=== PATIENT | male | born 1980 | race Caucasian/White ===

== ENCOUNTER 2024-03-13 13:35 | Emergency (ER) | payer BC, SELFPAY ==
[2024-03-13 14:30] VITALS: BP 127/80; PULSE 74; RESP 16; TEMP 37; O2SAT 97; BMI 35.9
--- NOTE | 2024-03-13 14:32 | ED_ITS ---
HPI - General Adult General Chief complaint: Extremity Injury, Lower Stated complaint: r leg inj Time Seen by Provider: 03/13/24 14:38 History of Present Illness ED Provider: Dominic Schmitz PA-C HPI narrative: 43 yold male healthy presents to the ED for right groin/thigh pain since yesterday. Patient states yesterday while playing with the son he was trying to kick the ball and while kicking he heard a pop in his right inner thigh groin area. Patient denies any blunt trauma to right thigh right lower extremity. Patient denies falling. Patient states pain on movement of right thigh ever since. Patient denies hitting head or any other complaints. Related Data Previous Rx's ?Medication ?Instructions ?Recorded cyclobenzaprine 10 mg tablet 10 mg PO BEDTIME PRN muscle spasm 03/13/24 #7 tabs naproxen 500 mg tablet 500 mg PO BID PRN pain 7 days #14 03/13/24 tabs prednisone 20 mg tablet 40 mg (2 x 20 mg) PO DAILY 5 days 03/13/24 #10 tabs Allergies Allergy/AdvReac Type Severity Reaction Status Date / Time No Known Allergies Allergy Verified 03/13/24 14:32 Review of Systems 2 Review of Systems: Right thigh pain Yes all other systems are reviewed and are negative [facility] Social History Social History Advance Directives: No Advance Directives Information Provided: Yes Physical Exam ED Vital Signs: Vital Signs - 24 hr 03/13/24 14:30 03/13/24 15:04 Temperature 98.6 F 98.6 F Pulse Rate 74 74 Respiratory Rate 16 16 Blood Pressure 127/80 127/80 Pulse Oximetry 97 97 Oxygen Delivery Method Room Air Room Air BMI result Body Mass Index 35.9 Const General: cooperative, healthy appearing, comfortable, no acute distress, well developed, alert, awake and Physically active Orientation/consciousness: patient oriented x3 HENMT Head: Yes normal to inspection, Yes No palpable skull fracture present, Yes normocephalic and Yes atraumatic Eyes General: appearance normal, both eyes and all related structures Neck Neck: Yes normal visual inspection, Yes full ROM, Yes no lymphadenopathy, Yes no meningeal signs, Yes trachea midline, Yes supple, No anterior neck swelling and No tender Chest Chest palpation & inspection: normal inspection of the chest and normal palpation of entire chest wall Resp Effort & Inspection: normal respiratory effort and able to speak in complete sentences Auscultation: clear to auscultation bilaterally Cardio Jugular venous distension: no JVD Heart sounds: S1 normal heart sound present and S2 normal heart sound present GI Inspection: Yes normal to inspection Palpation (GI): Soft to palpation, not firm, nontender, no guarding and not rigid General: Yes no CVA tenderness Back/Spine/Pelvis Back: no CVA tenderness and No back tenderness Skin General skin exam: no rashes or lesions noted, elasticity normal and turgor normal Neuro General: patient oriented x3, gait normal, tone normal, moves all extremities, Normal light touch and pain sensation, no meningeal signs, no focal motor deficits, CN's II-XI intact bilaterally and normal sensation to monofilament Extrem General: Yes normal to inspection, Yes full ROM, Yes capillary refill normal and Yes normal exam except as noted Knee images: 2 1. Positive for tenderness on palpation with some small ecchymosis. Negative for deformity, erythema or crepitus. Negative for palpable hard mass. Skin is soft. Rest of extremity normal. Motor/neuro/vascular exam intact. Psych Appearance: grossly normal, well kempt and not disheveled Course Course Course Narrative: RME; Done Medical Decision Making Medical Decision Making MDM Narrative: 43 yold male presents to the ED for right/thigh groin injury pain. Patient states yesterday he was playing soccer with his kids and as he was kicking the ball he heard a pop in his right groin and has had pain ever since. Patient denies any blunt trauma to right thigh. Patient states pain on range of motion of groin. patient states able to walk and bear weight. 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 Patient states he will follow-up with [facility] or his primary care provider. Patient refuses x-ray. Right inner thigh groin area tender to palpation with slight ecchymosis. Negative for hardening mass to indicate hematoma. Negative for calf/leg swelling or thigh swelling. Negative for skin stiffness. Rest of extremity motor neurovascular exam intact. History physical exam indicate more possible muscle tear/sprain. Unlikely fracture. Patient explained worrisome signs and risks including due to leaving without evaluation. patient states he will go with his primary care doctor or [facility]. Patient educated on signs of hematoma, compartment syndrome, hematoma extravasation, DVT, cellulitits, abscsess, arterial occlusion, and other life-threatening etiologies. Patient informed he will need an MRI to rule out muscle thigh tear. Patient does not want x-ray to evaluate for femur fracture. Presently not suspecting osteomyelitis, DVT, compartment syndrome, abscess, arterial occlusion, hematoma, extravasation hematoma, cellulitits or necrotizing fasciitis. Differential Diagnosis Differential Diagnoses: The differential diagnosis associated with the presentation includes (Muscle tear, femur fracture,) Admission/Observation Consideration of admission/observation: Escalation of care including admission/observation considered Independent Historian Clinical information obtained from an independent historian. History obtained from or confirmed by: Other (patietn) External Record Review External record reviewed: Other (prior visit) Prescription Management I considered prescription management with: Pain Medication Discharge Plan Discharge Clinical Impression: Injury to groin, Sprain Patient Disposition: Home, Self-Care Instructions: Hamstring Injury (ED) Additional Instructions: You will need follow-up with a primary care provider most likely for MRI to evaluate any groin thigh muscle tear/injury. Return to the ED immediately for increased swelling, ecchymosis, hardening of area/skin, hard palpable mass, red streaks, fever, chills, calf pain, leg swelling, posterior knee pain, chest pain, shortness of breath, or any other concerning symptoms. Recommend rest, elevation, icing the 1st 72 hours hours then can alternate to warm compress. Prescriptions: New naproxen 500 mg tablet 500 mg PO BID PRN (Reason: pain) 7 Days Qty: 14 0RF prednisone 20 mg tablet 40 mg PO DAILY 5 Days Qty: 10 0RF cyclobenzaprine 10 mg tablet 10 mg PO BEDTIME PRN (Reason: muscle spasm) Qty: 7 0RF Rx Instructions: side effect is drowsiness. Do not take at work or while driving. Stand Alone Forms: Work/School Release Interventions: ED Discharge Assessment Last Done: 03/13/24 15:04 Discharge Date/Time: 03/13/24 15:05 Print Language: [place]
[2024-03-13 15:04] VITALS: BP 127/80; PULSE 74; RESP 16; TEMP 37; O2SAT 97
== END 2024-03-13 15:05 | disposition home or self-care (01) ==
PROVIDERS: Emergency Provider Emergency Medicine
DX: S39.013A Strain of muscle, fascia and tendon of pelvis, initial encounter (principal); W21.02XA Struck by soccer ball, initial encounter; Y93.66 Activity, soccer; Y92.9 Unspecified place or not applicable; Y99.9 Unspecified external cause status; R10.30 Lower abdominal pain, unspecified
CPT/HCPCS: 99282; 99283